=== PATIENT | male | born 1975 | race Two or more races ===

== ENCOUNTER 2021-10-25 03:50 | Inpatient (IN) | payer MEDICAID, OTHER ==
[~2021-10-25] VITALS: Ht 170.2 cm; Wt 127.0 kg
[2021-10-25] MEDS ORDERED: diphenhydrAMINE HCL 50 MG/ML VIAL ONE (04:13)
[2021-10-25] MEDS ORDERED: LORAZEPAM INJ 2 MG/ML VIAL ONE ×3 (04:14→06:45)
--- NOTE | 2021-10-25 04:21 | NUR ---
[id number]. AGITATED - YELLING AND SCREAMING AT PEOPLE AT A [place]. PLACED IN BED 6 ON OUTBOARD MOTOR MECHANIC AND PULSE OX. PT SCREAMING NON SENSE.
[2021-10-25] MEDS ORDERED: diphenhydrAMINE HCL 50 MG/ML VIAL IM ONE (04:30)
[2021-10-25] MEDS ORDERED: LORAZEPAM INJ 2 MG/ML VIAL IM ONE ×2 (04:30→05:00)
--- NOTE | 2021-10-25 04:30 | NUR ---
Benadryl 50mg and 2mg ativan verbal ordered by
--- NOTE | 2021-10-25 04:48 | NUR ---
EMT AT BEDSIDE FOR EKG
[2021-10-25] MEDS ORDERED: OLANZAPINE 10 MG VIAL IM ONE ×4 (05:12→07:00)
[2021-10-25] MEDS: OLANZAPINE 10 MG VIAL IM ONE ×2 (05:28→05:31)
[2021-10-25] MEDS ORDERED: IV NS 0.9% 1,000 ML BAG IV ONE (06:00)
[2021-10-25] MEDS: Magnesium 1GM/D5W 100ML PREMIX 100 ML IV SCH ×2 (06:00→07:06)
[2021-10-25] MEDS ORDERED: Magnesium 1GM/D5W 100ML PREMIX 100 ML IV ONE ×2 (06:19→07:55)
[2021-10-25] MEDS ORDERED: LORAZEPAM INJ 2 MG/ML VIAL IV ONE (07:00)
[2021-10-25 07:04] LABS: ALANINE AMINOTRANSFERASE 31 U/L (12-78); ALBUMIN 3.6 g/dL (3.4-5.0); ALCOHOL, BLOOD < 3 mg/dL (0-0); ALKALINE PHOSPHATASE 100 U/L (46-116); ASPARTATE AMINOTRANSFERASE 30 U/L (15-37); BILIRUBIN,DIRECT 0.1 mg/dL (0.0-0.2); BILIRUBIN,TOTAL 0.4 mg/dL (0.2-1.0); CALCIUM, SERUM 8.8 mg/dL (8.5-10.1); CARBON DIOXIDE 25 mmol/L (21-32); CHLORIDE 101 mmol/L (98-107); CREATININE 1.1 mg/dL (0.6-1.3); GLUCOSE 96 mg/dL (74-106); POTASSIUM 4.2 mmol/L (3.5-5.1); SODIUM SERUM 138 mmol/L (136-145); TOTAL PROTEIN, SERUM 7.6 g/dL (6.4-8.2); UREA NITROGEN, BLOOD 14 mg/dL (7-18)
[2021-10-25 07:15] LABS: ACETAMINOPHEN < 10 ug/ml (10-30)
[2021-10-25 07:49] LABS: BASOPHILS % (AUTO) 0.3 % (0.0-2.0); EOSINOPHILS % (AUTO) 0.1 % (0.0-6.0); HEMATOCRIT 40 % (39-51); LYMPHOCYTES % (AUTO) 7.5 % (20.0-44.0); MEAN CORPUSCULAR HGB CONC 33 g/dl (31.0-36.0); MEAN CORPUSCULAR VOLUME 91 fL (80-96); MONOCYTES # (AUTO) 0.7 K/uL (0.1-1.30); MONOCYTES % (AUTO) 5.5 % (2.0-12.0); NEUTROPHILS # (AUTO) 11.1 K/uL (1.8-8.9); NEUTROPHILS % (AUTO) 86.6 % (43.0-81.0); PLATELET COUNT (AUTO) 241 K/uL (150-450); RED BLOOD CELL COUNT(AUTO) 4.34 MIL/uL (4.5-6.0); WHITE BLOOD COUNT (AUTO) 12.8 K/uL (4.3-11.0)
--- NOTE | 2021-10-25 08:22 | NUR ---
RADIOLOGY AT BEDSIDE
--- NOTE | 2021-10-25 08:35 | NUR ---
COVID TEST COLLECTED AND SENT
--- NOTE | 2021-10-25 11:08 | NUR ---
ROOM 108
--- NOTE | 2021-10-25 11:20 | NUR ---
REPORT GIVEN TO AZUL MARTINS OF [facility]
--- NOTE | 2021-10-25 11:48 | NUR ---
PATIENT ADMITTED TO [facility] FOR TIARA
[2021-10-25 12:00] VITALS: BP 173/107
--- NOTE | 2021-10-25 12:00 | NUR ---
RN OPENING NOTE PATIENT RECEIVED FROM EMERGENCY DEPARTMENT. REPORT RECEIVED FROM [facility]. ADMITTING DIAGNOSIS OF TACHYCARDIA, ACUTE METABOLIC ENCEPHALOPATHY AND ALCOHOL WITHDRAWAL. PATIENT IS A+O TIMES 1. ON 4 LITERS O2 NASAL CANNULA. PATIENT HAS A LEFT IV SALINE LOCK 20 GAUGE. PATIENT IS LETHARGIC AND INCOMPREHENSIBLE. UNABLE TO PERFORM INITIAL ASSESSMENT AND UNABLE TO GET PERTINENT PAST MEDICAL HISTORY. ALL SAFETY MEASURES IMPLEMENTED. BED IS IN LOWEST POSITION, CALL LIGHT IS WITHIN REACH AND BED ALARM IS ACTIVATED. WILL CONTINUE TO ASSESS FOR ANY CHANGES.
--- NOTE | 2021-10-25 12:30 | NUR ---
patient waking up keep removing telemetry.dr. pringle notified for admission orders.
[2021-10-25] MEDS ORDERED: IV 1/2NS 1000 ML 1,000 ML IV PRN (13:00)
[2021-10-25] MEDS ORDERED: LORAZEPAM INJ 2 MG/ML VIAL IV PRN (13:00)
[2021-10-25] MEDS ORDERED: ZOLPIDEM TARTRATE 5 MG TABLET PO PRN (13:00)
[2021-10-25] MEDS ORDERED: ACETAMINOPHEN 325 MG TABLET PO PRN (13:00)
[2021-10-25] MEDS ORDERED: ONDANSETRON HCL/PF 4 MG/2 ML VIAL IVP PRN (13:00)
[2021-10-25] MEDS ORDERED: Z GUARD REMEDY 4 OZ OINT TP PRN (13:00)
[2021-10-25] MEDS ORDERED: MAGNESIUM HYDROXIDE 30 ML UDC PO PRN (13:00)
[2021-10-25] MEDS ORDERED: MAG HYDROX/AL HYDROX/SIMETH 30 ML UDC PO PRN (13:00)
--- NOTE | 2021-10-25 13:20 | NUR ---
pt. screaming dr. pringle notified ordered new meds,psyche eval.awaits sitter.will continue to monitor.
[2021-10-25] MEDS ORDERED: diphenhydrAMINE HCL 50 MG/ML VIAL IV PRN (13:30)
--- NOTE | 2021-10-25 13:37 | NUR ---
post ativan/benadryl given patient trying get out of bed still screaming dr. pringle notified and ordered haldol.
[2021-10-25] MEDS: HALOPERIDOL LACTATE INJ 5 MG/ML VIAL IM PRN ×2 (13:43→20:56)
--- NOTE | 2021-10-25 13:44 | NUR ---
fall risk precaution observed .awaits sitter nursing sup notified.bedalrm on siderails up lower bed,will continue to monitor.SINUS TACH 110 ON MONITOR.
--- NOTE | 2021-10-25 13:51 | NUR ---
POST HALDOL PATIENT GETTING OUT OF BED SCREAMING ,UNABLE TO FOLLOW COMMANDS.STARTED TO SWING ARMS TO NURSES,ZOLTAN BOYLE CALLED.
--- NOTE | 2021-10-25 14:00 | NUR ---
RESTRAINT INITIATED PER DR. SAMSON.
--- NOTE | 2021-10-25 14:02 | NUR ---
PATIENT REMAINS ON SINUS TACHYCARDIA,MD AWARE.SATURATES 94%.
[2021-10-25 14:28] LABS: CREATINE KINASE, TOTAL 639 U/L (39-308); THYROID STIMULATING HORMONE 5.189 uIU/mL (0.358-3.74)
--- NOTE | 2021-10-25 14:42 | NUR ---
PATIENT ASLEEP NO ACUTE DISTRESS.SINUS TACH 105 ON MONITOR.
[2021-10-25 16:00] VITALS: BP 123/87
[2021-10-25] MEDS ORDERED: CHLORDIAZEPOXIDE HCL 25 MG CAPSULE PO SCH (17:00)
--- NOTE | 2021-10-25 18:27 | NUR ---
RN NOTE NON ADMIN LIBRIUM. PATIENT IS ASLEEP AND LETHARGIC. UNABLE TO TAKE PO MEDS
--- NOTE | 2021-10-25 19:15 | NUR ---
RN CLOSING NOTE PATIENT IS ASLEEP ON 4L O2 VIA NASAL CANNULA WITH HOB ELEVATED TO 30 DEGREES. BILATERAL SOFT WRIST RESTRAINTS IN PLACE. BED IS IN LOWEST POSITION WITH CALL LIGHT WITHIN REACH. WILL ENDORE TO ONCOMING METER/RELAY CRAFTSMAN NURSE FOR TIARA.
--- NOTE | 2021-10-25 19:55 | NUR ---
[facility] RN OPENING NOTE PT IN BED SLEEPING COMFORTABLY, A/O X1, ON O2 AT 4L VIA NASAL CANNULA, TOLERATING WELL, WITH HOB ELEVATED. WITH IV ACCESS ON L AC SALINE LOCK #20g, INTACT AND PATENT. BILATERAL SOFT WRIST RESTRAINTS IN PLACE. V/S TAKEN AND RECORDED, WITH SITTER ON BEDSIDE, CALL LIGHT WITHIN REACH. BED IN LOWEST AND LOCKED POSITION, WILL CONTINUE TO MONITOR CLOSELY.
--- NOTE | 2021-10-25 20:56 | NUR ---
RN NOTE NOTED PT AWAKE, A/O X4 AND SCREAMING, ASKING TO BE OUT OF RESTRAINTS AND TO LEAVE AGAINST MEDICAL ADVICE. PT REFUSED ADMINISTRATION OF HALDOL MEDICATION PRN ORDER, AND REFUSED VITAL SIGNS TO BE TAKEN BY THE AUTOMATIC LOG CUT OFF SAWYER. SITTER ON BEDSIDE, WILL CONT TO MONITOR
--- NOTE | 2021-10-25 21:20 | NUR ---
RN NOTE INFORMED CN AND DR. ROBERTS ABOUT PT REQUESTING TO GO HOME AGAINST MEDICAL ADVISE. ENCOURAGED PT TO STAY FOR SAFETY MEASURES BUT HE SAID "HE REALLY WANNA GO HOME AND TAKE A BUS, HE'S VERY INDEPENDENT. AWAITING FOR AIR SEALING TECHNICIAN TO COME AND SEE THE PT. WILL CONT TO MONITOR.
--- NOTE | 2021-10-25 22:45 | NUR ---
KITTY ROBERTS SECURITY DOOR INSTALLER INFORMED THAT PATIENT WANTS TO LEAVE AGAINST MEDICAL ADVICE, MOBILE WEB APPLICATION DEVELOPER MEREDITH JAMES AWARE, ASSESSED PATIENT BY MYSELF AND ASKED PATIENT WHY HE WANTS TO LEAVE AND HOW HE SUPPOSE TO GO HOME, BECAUSE HE USES W/C, ASKED PATIENT IF FAMILY IS ABLE TO PICK HIM UP, AND PATIENT STATED THERE'S NOTHING WRONG WITH HIM, THAT HE IS FINE AND HE WAS JUST HIGH WHEN HE WAS BROUGHT TO HOSPITAL, PATIENT CALM A/O X4 ABLE TO VERBALIZE NEEDS AND CONCERNS, AND HE STATED THAT HE IS GOING TO LEAVE IN THE W/C, AND WILL TAKE THE BUS, STATED THAT HE IS VERY INDEPENDENT AND NOBODY TAKES CARE OF HIM, ASKED IF PATIENT HAS A PLACED TO LIVE, AND HE STATED HE HAS, DENIES BEING HOMELESS, OFFERED PATIENT TO STAY FOR THE NIGHT AND HE CAN LEAVE IN AM SO HE IS SAFE FOR THE NIGHT, AND HE REFUSED, KITTY ROBERTS ASSESSED PATIENT AT THIS TIME, PATIENT DENIES ANY SI/HI, PATIENT WILL LEAVE AGAINS MEDICAL ADVICE.
--- NOTE | 2021-10-25 22:45 | NUR ---
RN NOTE DR ROBERTS ON BEDSIDE TO SEE THE PT AND ASSESS FOR SUICIDAL AND HOMICIDAL TENDENCIES, PT DECLINES AND STATED HE WANTS TO GO HOME AND REFUSED MEDICAL CARE. WILL PREPARE FORM FOR PT GOING HOME AGAINST MEDICAL ADVISE.
--- NOTE | 2021-10-25 23:10 | NUR ---
RN NOTE PT A/O X4, SIGNED THE FORM FOR GOING HOME AGAINST MEDICAL ADVISE, IV ACCESS DC, ID BAND TAKEN OFF, HAD PT CHANGE HIS CLOTHES, TRANSPORTED BY THE 1:1 SITTER GOING OUT OF THE HOSPITAL VIA WHEELCHAIR.
[2021-10-26] MEDS ORDERED: CHLO25CA22 PO (06:09)
[2021-10-26] MEDS ORDERED: PANTOPRAZOLE 40 MG TABLET.DR PO SCH (07:30)
== END 2021-10-25 23:02 | disposition left against medical advice (07) | DRG 770 ==
LOC: ER 03:52 → TELE-TD 11:31
PROVIDERS: ADMIT Student in an Organized Health Care Education/Training Program; ATTEND Nurse Practitioner Family
DX: F10.239 Alcohol dependence with withdrawal, unspecified (principal); G92.8 Other toxic encephalopathy; G82.20 Paraplegia, unspecified; J81.1 Chronic pulmonary edema; Z99.3 Dependence on wheelchair; Y90.0 Blood alcohol level of less than 20 mg/100 ml; D72.829 Elevated white blood cell count, unspecified; D64.9 Anemia, unspecified; I51.7 Cardiomegaly; M19.90 Unspecified osteoarthritis, unspecified site; Z91.19 Patient's noncompliance with other medical treatment and regimen
CPT/HCPCS: 36415; 71045-TC; 80048-TC; 80076-TC; 82140-TC; 82550-TC; 82553; 83735-TC; 83880; 84443-TC; 84484-TC; 85025-TC; 87081-TC; C9803; G0378; G0480; J1200; J1630; J2060; J3475; J3490; J7030

== ENCOUNTER 2021-10-26 04:00 | Emergency (ER) | payer MEDICAID ==
[~2021-10-26] VITALS: Ht 170.2 cm; Wt 127.0 kg
--- NOTE | 2021-10-26 04:46 | NUR ---
TO ER BED 7. [id number] C/O UNWITNESSED SEIZURE X 1 HR AGO. NO TRAUMA NOTED. PT NOT POSTITCAL. DENIES CHEST PAIN OR SOB. CONNECTED TO MONITOR. SEIZURE PRECAUTIONS IN PLACE. AWAITING MD HOUSTON
[2021-10-26] MEDS ORDERED: CHLORDIAZEPOXIDE HCL 25 MG CAPSULE PO ONE (05:00)
[2021-10-26] MEDS ORDERED: CHLORDIAZEPOXIDE HCL 25 MG CAPSULE ONE ×2 (05:08→05:10)
[2021-10-26] MEDS ORDERED: LORAZEPAM INJ 2 MG/ML VIAL ONE (05:10)
--- NOTE | 2021-10-26 05:21 | NUR ---
PT TAKEN FOR CT SCAN
[2021-10-26 05:29] LABS: BASOPHILS # (AUTO) 0.1 K/uL (0.0-0.2); EOSINOPHILS % (AUTO) 1.1 % (0.0-6.0); HEMATOCRIT 39 % (39-51); HEMOGLOBIN 12.9 g/dL (13.5-17.5); LYMPHOCYTES % (AUTO) 17.7 % (20.0-44.0); MEAN CORPUSCULAR HGB CONC 33 g/dl (31.0-36.0); MEAN CORPUSCULAR VOLUME 92 fL (80-96); MONOCYTES # (AUTO) 0.4 K/uL (0.1-1.30); NEUTROPHILS # (AUTO) 4.3 K/uL (1.8-8.9); NEUTROPHILS % (AUTO) 73.2 % (43.0-81.0); PLATELET COUNT (AUTO) 194 K/uL (150-450); RED BLOOD CELL COUNT(AUTO) 4.22 MIL/uL (4.5-6.0); WHITE BLOOD COUNT (AUTO) 5.9 K/uL (4.3-11.0)
--- NOTE | 2021-10-26 05:29 | NUR ---
PT REFUSED CT SCAN, MADE AWARE
[2021-10-26] MEDS ORDERED: LORAZEPAM INJ 2 MG/ML VIAL IM ONE (05:30)
[2021-10-26 05:40] LABS: CALCIUM, SERUM 8.9 mg/dL (8.5-10.1); CREATININE 0.9 mg/dL (0.6-1.3); POTASSIUM 4.4 mmol/L (3.5-5.1)
--- NOTE | 2021-10-26 05:41 | NUR ---
PT REFUSED TO PROVIDE URINE SAMPLE
[2021-10-26 05:53] LABS: ALBUMIN 3.3 g/dL (3.4-5.0); BILIRUBIN,DIRECT 0.1 mg/dL (0.0-0.2); BILIRUBIN,TOTAL 0.5 mg/dL (0.2-1.0); TOTAL PROTEIN, SERUM 7.3 g/dL (6.4-8.2)
[2021-10-26] MEDS ORDERED: CHLO25CA22 PO (06:09)
[2021-10-26 06:22] VITALS: BP 140/96
--- NOTE | 2021-10-26 06:22 | NUR ---
Patient discharged to home in stable condition. Written and verbal after care instructions given. Patient verbalizes understanding of instruction.
--- NOTE | 2021-10-26 12:18 | NUR ---
SW received consult for homelessness. Pt. has been discharged, SW was not able to see pt.
== END 2021-10-26 06:23 | disposition home or self-care (01) ==
LOC: EDBD → ER 04:01
DX: F10.129 Alcohol abuse with intoxication, unspecified (principal); R00.0 Tachycardia, unspecified; Z79.899 Other long term (current) drug therapy; Y90.9 Presence of alcohol in blood, level not specified
CPT/HCPCS: 36415; 71045; 80048; 80076; 85025; 96372; 99284; J2060

== ENCOUNTER 2021-10-29 02:11 | Emergency (ER) | payer MEDICAID ==
[~2021-10-29] VITALS: Ht 170.2 cm; Wt 95.3 kg
[~2021-10-29 02:11] MED LIST: CHLO25CA22 PO
--- NOTE | 2021-10-29 02:20 | NUR ---
[id number] [place] [facility] FOR "ETOH WITHDRAWAL. LAST DRINK 2 DAYS AGO". PATIENT ALERT AND ORIENTED X2. BROUGHT IN BY STRETCHER, NORMALLY AMBULATES VIA WHEELCHAIR. PATIENT IN BED 12 ON MONITOR AWAITING MD HOUSTON.
[2021-10-29 04:34] VITALS: BP 110/77
--- NOTE | 2021-10-29 04:34 | NUR ---
Patient discharged to home in stable condition. Written and verbal after care instructions given. Patient verbalizes understanding of instruction.
== END 2021-10-29 04:34 | disposition home or self-care (01) ==
LOC: ER 02:18
DX: F10.139 Alcohol abuse with withdrawal, unspecified (principal); Z59.00 Homelessness unspecified; Z79.899 Other long term (current) drug therapy; Y90.9 Presence of alcohol in blood, level not specified

== ENCOUNTER 2021-10-29 21:46 | Emergency (ER) | payer MEDICAID ==
[~2021-10-29] VITALS: Ht 170.2 cm; Wt 95.3 kg
[2021-10-30 06:36] VITALS: BP 132/90
--- NOTE | 2021-10-30 06:36 | NUR ---
Patient discharged to home in stable condition. Written and verbal after care instructions given. Patient verbalizes understanding of instruction.
== END 2021-10-30 06:36 | disposition home or self-care (01) ==
LOC: ER 21:53
DX: F10.129 Alcohol abuse with intoxication, unspecified (principal); Z59.00 Homelessness unspecified; Z79.899 Other long term (current) drug therapy; Y90.9 Presence of alcohol in blood, level not specified
CPT/HCPCS: 82962-TC

== ENCOUNTER 2022-01-14 19:23 | Emergency (ER) | payer SELFPAY ==
[~2022-01-14] VITALS: Ht 175.3 cm; Wt 113.4 kg
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
[2022-01-14] MEDS ORDERED: LORAZEPAM 1 MG TABLET PO ONE (20:00)
[2022-01-14] MEDS ORDERED: LORAZEPAM 1 MG TABLET ONE (20:01)
--- NOTE | 2022-01-14 20:04 | NUR ---
LAB AT BEDSIDE
--- NOTE | 2022-01-14 20:29 | NUR ---
URINE SAMPLE COLLECTED AND SENT TO LAB
[2022-01-14 21:00] LABS: BASOPHILS % (AUTO) 0.7 % (0.0-2.0); EOSINOPHILS % (AUTO) 2.7 % (0.0-6.0); HEMATOCRIT 40 % (39-51); HEMOGLOBIN 13.1 g/dL (13.5-17.5); LYMPHOCYTES % (AUTO) 21.8 % (20.0-44.0); MEAN CORPUSCULAR HGB CONC 33 g/dl (31.0-36.0); MEAN CORPUSCULAR VOLUME 93 fL (80-96); MONOCYTES # (AUTO) 0.5 K/uL (0.1-1.30); MONOCYTES % (AUTO) 10.1 % (2.0-12.0); NEUTROPHILS % (AUTO) 64.7 % (43.0-81.0); PLATELET COUNT (AUTO) 218 K/uL (150-450); RED BLOOD CELL COUNT(AUTO) 4.34 MIL/uL (4.5-6.0); WHITE BLOOD COUNT (AUTO) 4.7 K/uL (4.3-11.0)
[2022-01-14 21:08] LABS: CALCIUM, SERUM 8.2 mg/dL (8.5-10.1); CREATININE 0.8 mg/dL (0.6-1.3); POTASSIUM 4.2 mmol/L (3.5-5.1)
--- NOTE | 2022-01-14 21:13 | NUR ---
COVID ANTIGEN SWAB COLLECTED AND SENT TO LAB
[2022-01-14 21:14] LABS: ALBUMIN 3.1 g/dL (3.4-5.0); BILIRUBIN,DIRECT 0.1 mg/dL (0.0-0.2); BILIRUBIN,TOTAL 0.1 mg/dL (0.2-1.0); TOTAL PROTEIN, SERUM 7.3 g/dL (6.4-8.2)
[2022-01-14 21:14] LABS: BILIRUBIN,URINE NEGATIVE (NEGATIVE); COLOR,URINE YELLOW (YELLOW); LEUKOCYTE ESTERASE ,URINE NEGATIVE (NEGATIVE); NITRITE, URINE NEGATIVE (NEGATIVE); PH,URINE 5.5 (5.0-8.0); PROTEIN,URINE NEGATIVE (NEGATIVE); UGLUCOSE NEGATIVE (NEGATIVE); UROBILINOGEN,URINE 0.2 EU/dL (0.2)
--- NOTE | 2022-01-14 23:32 | NUR ---
FAXED CLINICALS TO [facility]
--- NOTE | 2022-01-15 05:34 | NUR ---
PT SLEEPING IN BED. RESP EVEN AND NON LABORED. VSS. SAFET MEASURES IN PLACE
[2022-01-15 09:56] VITALS: BP 144/90
--- NOTE | 2022-01-15 09:56 | NUR ---
PT PROVIDED W/ ICED WATER AND SOME WASH CLOTHS AT BEDSIDE.
--- NOTE | 2022-01-15 10:30 | NUR ---
PT VERBALIZED THAT HE IS NOT SUICIDAL AND DENIES ANY SUICIDAL/HOMICIDAL IDEATION. PT NOT ON HOLD. PROVIDED BREAKFAST TRAY, REHANA WELL. PT NOT IN ACUTE DISTRESS. MD MADE AWARE THAT PT WANTS TO BE DISCHARGED ALREADY.
--- NOTE | 2022-01-15 11:03 | NUR ---
PT ELOPED FROM FACILITY W/ HIS BELONGINGS AND WHEELCHAIR. PT STATES HE DOES NOT WANT TO WAIT FOR HIS DISCHARGE PAPERS. MADE AWARE.
[2022-01-16] MEDS ORDERED: OLAN20TA3 PO (09:10)
[2022-01-16] MEDS ORDERED: LISI10TA29 PO (09:10)
== END 2022-01-15 11:06 | disposition left against medical advice (07) ==
LOC: ER 19:25
DX: R45.851 Suicidal ideations (principal); G82.20 Paraplegia, unspecified; Z59.00 Homelessness unspecified; Z20.822 Contact with and (suspected) exposure to COVID-19; Z53.20 Procedure and treatment not carried out because of patient's decision for unspecified reasons
CPT/HCPCS: 99285; 85025; 80048; 80076; 81003; 36415; 87426; 80143; 80320; 80307; C9803; G0480

== ENCOUNTER 2022-01-16 07:47 | Inpatient (IN) | payer MEDICAID ==
[~2022-01-16] VITALS: Ht 152.4 cm; Wt 121.1 kg
--- NOTE | 2022-01-16 07:30 | NUR ---
SERVICE AGENT OPENING NOTES RECEIVED PATIENT ON BED RESTING AND A/O X4. ON ROOM AIR TOLERATING WELL. NO SOB NOTED. NOT IN DISTRESS. WITH NO COMPLAINTS OF PAIN OR DISCOMFORT AT THIS TIME. ON TELE MONITOR CURRENTLY READING SINUS BRADYCARDIA AT 48BPM. WITH IV ACCESS AT THE LEFT AC G20 SALINE LOCKED, PATENT AND INTACT. SAFETY MEASURES IN PLACED. CALL LIGHT WITHIN REACH. BED ON LOWEST LOCKED POSITION, SIDE RAILS UP X2. WILL CONTINUE TO MONITOR.
--- NOTE | 2022-01-16 08:20 | NUR ---
COVID SWAB COLLECTED AND SENT TO LAB
[2022-01-16] MEDS ORDERED: IV NS 0.9% 1,000 ML BAG IV ONE (08:30)
--- NOTE | 2022-01-16 08:30 | NUR ---
X RAY AT BEDSIDE
[2022-01-16] MEDS ORDERED: LORAZEPAM INJ 2 MG/ML VIAL ONE (08:57)
[2022-01-16] MEDS ORDERED: LORAZEPAM INJ 2 MG/ML VIAL IV ONE (09:00)
[2022-01-16] MEDS ORDERED: LISI10TA29 PO (09:10)
[2022-01-16] MEDS ORDERED: OLAN20TA3 PO (09:10)
--- NOTE | 2022-01-16 09:57 | NUR ---
URINE SAMPLE COLLECTED AND SENT TO LAB
[2022-01-16] MEDS ORDERED: Z GUARD REMEDY 4 OZ OINT TP PRN (10:30)
[2022-01-16] MEDS ORDERED: ACETAMINOPHEN 325 MG TABLET PO PRN (10:30)
[2022-01-16] MEDS ORDERED: IV NS 0.9% 1,000 ML IV PRN (10:30)
[2022-01-16] MEDS ORDERED: MAG HYDROX/AL HYDROX/SIMETH 30 ML UDC PO PRN (10:30)
[2022-01-16] MEDS ORDERED: ONDANSETRON HCL/PF 4 MG/2 ML VIAL IVP PRN (10:30)
--- NOTE | 2022-01-16 10:41 | NUR ---
REPORT TO LISA MARTINS. PT AWAITING TRANSFER TO FLOOR.
[2022-01-16] MEDS: THIAMINE HCL 100 MG TABLET PO SCH (10:47)
[2022-01-16] MEDS: FOLIC ACID 1 MG TABLET PO SCH (10:47)
[2022-01-16] MEDS: PANTOPRAZOLE 40 MG VIAL IV SCH (10:47)
--- NOTE | 2022-01-16 11:18 | NUR ---
TRANSFERRED TO FLOOR. STABLE CONDITION.
[2022-01-16 11:30] VITALS: BP 163/113
--- NOTE | 2022-01-16 11:30 | NUR ---
THREAD ROLLER NOTES RECEIVED PATIENT FROM ER ENDORSED BY LAKSHMI HUDSON VIA [facility]E. PATIENT IS AWAKE AND A/O X2-3, CONFUSED. WITH NO COMPLAINTS OF PAIN AT THIS TIME. WITH IV ACCESS AT THE RIGHT UPPER ARM G20 SALINE LOCKED, PATENT AND INTACT. SAFETY MEASURES IN PLACED. CALL LIGHT WITHIN REACH. BED ON LOWEST LOCKED POSITION, SIDE RAILS UP X2. WILL CONTINUE TO MONITOR.
--- NOTE | 2022-01-16 11:35 | NUR ---
RN NOTES PATIENT REFUSED SKIN ASSESSMENT AND FOR TELE MONITOR DEVICE TO BE ATTACHED ON HIM.
[2022-01-16] MEDS: LORAZEPAM INJ 2 MG/ML VIAL IV PRN ×2 (13:04→19:34)
--- NOTE | 2022-01-16 13:04 | NUR ---
RN NOTE PATIENT WAS AGITATED AND YELLING. ATIVAN IV PRN FOR AGITATION GIVEN. WILL MONITOR.
--- NOTE | 2022-01-16 19:34 | NUR ---
ASSISTANT COUNTY ATTORNEY OPENING NOTE RECEIVED PATIENT AWAKE IN BED. A/O X4. ON ROOM AIR TOLERATING WELL. NO SOB OR S/S OF RESPIRATORY DISTRESS. WITH NO COMPLAINTS OF PAIN OR DISCOMFORT AT THIS TIME. PT REFUSING EXTERNAL MUSIC ENGINEER AT THIS TIME. IV ACCESS AT THE LEFT AC G20 SALINE LOCKED, PATENT AND INTACT, REFUSING IVF AT THIS TIME. SAFETY PRECAUTIONS IN PLACE. BED IN LOWEST LOCKED POSITION, HOB ELEVATED, SIDE RAILS UP X3, AND CALL LIGHT AND TABLE WITHIN REACH. ALL NEEDS MET AT THIS TIME.
--- NOTE | 2022-01-16 19:35 | NUR ---
EMPLOYMENT AND CLAIMS AIDE CLOSING NOTES PATIENT ON BED AWAKE AND A/O X2-3, CONFUSED. ON ROOM AIR TOLERATING WELL. NO SOB NOTED. NOT IN DISTRESS. WITH NO COMPLAINTS OF PAIN AT THIS TIME. STILL REFUSING FOR CARDIAC MONITORING. WITH IV ACCESS AT THE RIGHT UPPER ARM G20 SALINE LOCKED, PATENT AND INTACT. SAFETY MEASURES IN PLACED. CALL LIGHT WITHIN REACH. BED ON LOWEST LOCKED POSITION, SIDE RAILS UP X2. WILL ENDORSE TO NEXT SHIFT FOR TIARA.
[2022-01-16] MEDS ORDERED: ZOLPIDEM TARTRATE 5 MG TABLET PO PRN (22:00)
[2022-01-16] MEDS ORDERED: MAGNESIUM HYDROXIDE 30 ML UDC PO PRN (22:00)
[2022-01-17] MEDS ORDERED: HALOPERIDOL LACTATE INJ 5 MG/ML VIAL IM ONE
[2022-01-17] MEDS ORDERED: HALOPERIDOL DECANOATE IM 100 MG/ML AMPUL IM ONE
--- NOTE | 2022-01-17 00:10 | NUR ---
RN NOTE PT AGITATED, VERBALLY ABUSIVE, AND HALLUCINATING. PT REMOVED IV SITE WELL REFUSING ALL CARE. SECURITY CALLED DUE TO AGGRESSION AND AGITATION. MD SAMSON INFORMED WITH NEW ORDERS FOR HALDOL 5 MG IM ONCE. GIVEN IN LEFT DELTOID WITH SECURITY PRESENT. CHANGE NURSE DASHA AWARE. WILL CONTINUE TO MONITOR.
[2022-01-17] MEDS ORDERED: LORAZEPAM INJ 2 MG/ML VIAL IM PRN (01:30)
--- NOTE | 2022-01-17 01:40 | NUR ---
RN NOTE PT STILL AGGRESSIVE AND AGITATED. PT IS SCREAMING PROFANITIES AND TRYING TO GET OUT OF BED. STILL REFUSING IV ACCESS. DR SAMSON AWARE WITH NEW ORDER FOR ATIVAN 2 MG IM Q4H PRN FOR AGITATION. NOTED AND CARRIED OUT. CHANGE NURSE DASHA AWARE.
--- NOTE | 2022-01-17 05:48 | NUR ---
RN NOTE PT MORE RELAXED AT THIS TIME. PT STILL REFUSING IV ACCESS, IVF, EXTERNAL CARDIAC MONITORING, SKIN ASSESSMENT, BED BATH, AND LINEN CHANGE. EXPLAINED THE IMPORTANCE OF ALLOWING CARE, PT STILL REFUSING. CHARGE NURSE LOU AWARE AT THIS TIME.
--- NOTE | 2022-01-17 06:48 | NUR ---
MIDDLE SCHOOL ENGLISH TEACHER CLOSING NOTE PATIENT AWAKE IN BED. A/O X2-3, CONFUSED. ON ROOM AIR TOLERATING WELL. NO SOB NOTED. NOT IN DISTRESS. WITH NO COMPLAINTS OF PAIN AT THIS TIME. STILL REFUSING FOR CARDIAC MONITORING. NO IV ACCESS AND PT STILL REFUSING. MD MADE AWARE. SAFETY PRECAUTIONS IN PLACE. BED IN LOWEST LOCKED POSITION, HOB ELEVATED, SIDE RAILS UP X3, AND CALL LIGHT AND TABLE WITHIN REACH. ALL NEEDS MET AT THIS TIME AND WILL ENDORSE TO ONCOMING NURSE FOR TIARA.
--- NOTE | 2022-01-17 07:30 | NUR ---
SENIOR PRODUCT DEVELOPMENT MANAGER OPENING NOTE PATIENT SLEEPING IN BED WITH 1-1 SITTER. A/O X2-3, CONFUSED. ON ROOM AIR TOLERATING WELL. NO SHORTNESS OF BREATH AND S/SX OF DISTRESS NOTED NOTED. NO IV ACCESS. WITH NO COMPLAINTS OF PAIN AT THIS TIME. PER NOC RN ENDORSEMENT PT STILL REFUSING FOR CARDIAC MONITORING, IV ACCESS, MEDICATIONS, AM LABS DESPITE ENCOURAGEMENT AND EXPLANATION OF HEALTH AND BENEFITS. MD MADE AWARE. SAFETY PRECAUTIONS IN PLACE. BED IN LOWEST LOCKED POSITION, HOB ELEVATED, SIDE RAILS UP X3, AND CALL LIGHT AND TABLE WITHIN REACH. WILL CONTINUE TO MONITOR DURING MY SHIFT.
[2022-01-17] MEDS: THIAMINE HCL 100 MG TABLET PO SCH (08:50)
[2022-01-17] MEDS: FOLIC ACID 1 MG TABLET PO SCH (08:50)
[2022-01-17] MEDS: PANTOPRAZOLE 40 MG VIAL IV SCH (08:50)
--- NOTE | 2022-01-17 09:31 | NUR ---
AMA NOTES PT IS AOX3-4, VERBALIZED THAT HE WANTS TO LEAVE THE HOSPITAL AM AND WILL GO TO HIS SISTER'S HOME. EXPLAINED RISKS AND CONSEQUENCES OF LEAVING THE HOSPITAL, PATIENT VERBALIZED UNDERSTANDING AND PATIENT STILL INSISTED OF LEAVING AM. MADE AWARE, PT SIGNED AMA FORM. PATIENT HAS NO IV ACCESS, ALL BELONGINGS ACCOUNTED FOR, PT SIGNED BELONGING LIST, NAME ARM BAND REMOVED. PT LEFT UNIT USING HIS OWN WHEELCHAIR ACCOMPANIED BY YO Sánchez OUTSIDE OF HOSPITAL LOBBY. Addendum: 01/17/22 at 0932 by ILIANA PHAM RN addendum: PT LEFT UNIT AT 0915
== END 2022-01-17 09:15 | disposition left against medical advice (07) | DRG 770 ==
LOC: ER 07:50 → TELE 10:32
PROVIDERS: ADMIT Nurse Practitioner Acute Care; ATTEND Nurse Practitioner Acute Care
DX: F10.239 Alcohol dependence with withdrawal, unspecified (principal); G92.8 Other toxic encephalopathy; G82.20 Paraplegia, unspecified; E87.0 Hyperosmolality and hypernatremia; Z68.43 Body mass index [BMI] 50.0-59.9, adult; E86.0 Dehydration; M19.90 Unspecified osteoarthritis, unspecified site; Y90.9 Presence of alcohol in blood, level not specified; Z59.00 Homelessness unspecified; Z79.899 Other long term (current) drug therapy; E66.01 Morbid (severe) obesity due to excess calories
CPT/HCPCS: 36415; 71045-TC; 80048-TC; 80076-TC; 82962-TC; 85025-TC; 97530-TC; C9803; G0378; G0480; J1630; J2060; J7030

== ENCOUNTER 2022-01-25 01:01 | Emergency (ER) | payer MEDICAID ==
[~2022-01-25] VITALS: Ht 167.6 cm; Wt 129.3 kg
[~2022-01-25 01:01] MED LIST changes: -CHLO25CA22 PO; +LISI10TA29 PO; +OLAN20TA3 PO
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
--- NOTE | 2022-01-25 01:30 | NUR ---
LAB AT BEDSIDE
--- NOTE | 2022-01-25 01:39 | NUR ---
URINE COLLECTED AND SENT TO LAB
--- NOTE | 2022-01-25 01:39 | NUR ---
COVID SWAB COLLECTED AND SENT TO LAB
[2022-01-25 01:50] LABS: BILIRUBIN,URINE NEGATIVE (NEGATIVE); COLOR,URINE YELLOW (YELLOW); LEUKOCYTE ESTERASE ,URINE NEGATIVE (NEGATIVE); NITRITE, URINE NEGATIVE (NEGATIVE); PROTEIN,URINE NEGATIVE (NEGATIVE); UGLUCOSE NEGATIVE (NEGATIVE); UROBILINOGEN,URINE 0.2 EU/dL (0.2)
[2022-01-25 01:53] LABS: BASOPHILS # (AUTO) 0.1 K/uL (0.0-0.2); BASOPHILS % (AUTO) 2.2 % (0.0-2.0); HEMATOCRIT 38 % (39-51); HEMOGLOBIN 12.6 g/dL (13.5-17.5); LYMPHOCYTES # (AUTO) 1.3 K/uL (0.8-4.8); MEAN CORPUSCULAR HGB CONC 33 g/dl (31.0-36.0); MEAN CORPUSCULAR VOLUME 91 fL (80-96); MONOCYTES # (AUTO) 0.4 K/uL (0.1-1.30); NEUTROPHILS # (AUTO) 2.7 K/uL (1.8-8.9); NEUTROPHILS % (AUTO) 58.8 % (43.0-81.0); PLATELET COUNT (AUTO) 207 K/uL (150-450); RED BLOOD CELL COUNT(AUTO) 4.19 MIL/uL (4.5-6.0); WHITE BLOOD COUNT (AUTO) 4.7 K/uL (4.3-11.0)
[2022-01-25 02:25] LABS: CALCIUM, SERUM 8.1 mg/dL (8.5-10.1); CARBON DIOXIDE 26 mmol/L (21-32); CHLORIDE 104 mmol/L (98-107); CREATININE 0.8 mg/dL (0.6-1.3); GLUCOSE 114 mg/dL (74-106); SODIUM SERUM 137 mmol/L (136-145); UREA NITROGEN, BLOOD 12 mg/dL (7-18)
[2022-01-25 02:31] LABS: ALANINE AMINOTRANSFERASE 22 U/L (12-78); ALBUMIN 2.9 g/dL (3.4-5.0); ALCOHOL, BLOOD 35 mg/dL (0-0); ALKALINE PHOSPHATASE 107 U/L (46-116); ASPARTATE AMINOTRANSFERASE 16 U/L (15-37); BILIRUBIN,TOTAL 0.1 mg/dL (0.2-1.0); TOTAL PROTEIN, SERUM 6.9 g/dL (6.4-8.2)
[2022-01-25 02:32] LABS: ACETAMINOPHEN < 2 ug/ml (10-30)
--- NOTE | 2022-01-25 04:34 | NUR ---
PER OCTOBER AT [facility]: PT IS ACCPETED AT [facility] UNDER CARE OF DR MASON # FOR REPORT: [phone]
--- NOTE | 2022-01-25 04:36 | NUR ---
[facility] ETA: 30-40 MIN
--- NOTE | 2022-01-25 04:55 | NUR ---
REPORT GIVEN TO NURSE KRISTINA
[2022-01-25] MEDS ORDERED: IV NS 0.9% 1,000 ML BAG IV ONE (05:30)
--- NOTE | 2022-01-25 05:57 | NUR ---
L WRIST #22G S/L IVF NS 1000ML INFUSING
--- NOTE | 2022-01-25 08:25 | NUR ---
[facility] ETA 0972.
--- NOTE | 2022-01-25 10:48 | NUR ---
Report given to [facility] for TIARA unit # [id number]
[2022-01-25 10:51] VITALS: BP 153/95
--- NOTE | 2022-01-25 10:55 | NUR ---
IV removed. Catheter intact and site benign. Pressure and 4x4 applied to site. No bleeding noted.
--- NOTE | 2022-01-25 10:57 | NUR ---
PATIENT PICKED UP BY [facility] [address] IN STABLE CONDITION. ALL BELONGINGS BROUGHT WITH THE PATIENT INCLUDING WHEELCHAIR.
== END 2022-01-25 11:21 ==
LOC: ER 01:03
DX: R45.851 Suicidal ideations (principal); F19.10 Other psychoactive substance abuse, uncomplicated; Z59.01 Sheltered homelessness; R00.0 Tachycardia, unspecified; G82.20 Paraplegia, unspecified; Z20.822 Contact with and (suspected) exposure to COVID-19
CPT/HCPCS: 99285; 96360; 85025; 80048; 80076; 81003; 36415; 87426; 80143; 80320; 80307; J7030; C9803; G0480

== ENCOUNTER 2022-04-04 18:24 | Emergency (ER) | payer SELFPAY ==
[~2022-04-04] VITALS: Ht 167.6 cm; Wt 129.3 kg
--- NOTE | 2022-04-04 18:31 | NUR ---
BIBRA [address] FOR ETOH. PT VIATLS ARE WITHIN NORMAL LIMITS. AWAITING MD HOUSTON.
[2022-04-04] MEDS ORDERED: IV NS 0.9% 1,000 ML BAG IV ONE (19:00)
--- NOTE | 2022-04-04 19:12 | NUR ---
PT LEFT IN STABLE CONDITION WIHTOUT SIGNING DISCHARGE PAPERS.
[2022-04-04 19:13] VITALS: BP 130/83
== END 2022-04-04 19:13 | disposition home or self-care (01) ==
LOC: ER 18:25
DX: F10.129 Alcohol abuse with intoxication, unspecified (principal); I10 Essential (primary) hypertension; Z59.00 Homelessness unspecified; Z79.899 Other long term (current) drug therapy; Y90.9 Presence of alcohol in blood, level not specified
CPT/HCPCS: J7030